=== PATIENT | male | born 1995 | race Caucasian/White ===

== ENCOUNTER 2020-09-02 11:53 | Emergency (ER) | payer OTHER ==
[~2020-09-02] VITALS: Ht 177.8 cm; Wt 81.7 kg
[~2020-09-02 11:53] MED LIST: HYDROCODONE-APA1 TA1 PO; NOHOMEMEDICATIONS; PENICILLIN VK250 MG PO
[2020-09-02] MEDS ORDERED: TRAMADOL 50 MG50 MG PO (12:19)
[2020-09-02] MEDS ORDERED: AMOXICILLIN 50500 MG PO (12:19)
[2020-09-02 12:23] VITALS: BP 141/81
== END 2020-09-02 12:24 | disposition home or self-care (01) ==
LOC: M.ERS 11:53
DX: K02.9 Dental caries, unspecified (principal); F17.210 Nicotine dependence, cigarettes, uncomplicated